=== PATIENT | female | born 1965 | race Caucasian/White ===

== ENCOUNTER 2021-10-16 10:59 | Inpatient (IN) | payer BC ==
[2021-10-16] MEDS ORDERED: Ondansetron PF 4 MG/2 ML Vial ONE (11:11)
[2021-10-16] MEDS ORDERED: Morphine 4 MG/ML VIAL ONE (11:11)
[2021-10-16 11:28] LABS: #Lymphocytes 0.3 thou/uL (1.20-3.40); #Monocytes 0.4 thou/uL (0.11-0.59); #Neutrophils 11.6 thou/uL (1.40-6.50); %Eosinophils 0.1 % (0.0-10.0); %Lymphocytes 2.6 % (21.0-51.0); %Monocytes 3.1 % (0.0-10.0); %Neutrophils 94.2 % (42.0-75.0); Mean Corpuscular HGB CONC 33.6 g/dL (32.0-36.0); Mean Corpuscular Volume 98.2 fL (78.0-98.0); Mean Platelet Volume 7.8 fL (7.4-10.4); Platelet Count 276 thou/uL (130-400); RBC Distribution Width 12.4 % (11.5-14.5); Red Blood Cell (RBC) Count 4.25 mill/uL (4.20-5.40); White Blood Cell (WBC) Count 12.3 thou/uL (4.8-10.8)
[2021-10-16 11:41] LABS: INR-International Normal Ratio 1.1; Prothrombin Time 14.5 sec (12.0-14.7)
[2021-10-16 11:42] LABS: PTT 96.9 sec (22.9-36.1)
[2021-10-16 11:54] LABS: ALT (SGPT) 15 U/L (8-55); AST (SGOT) 34 U/L (5-34); Albumin 2.9 g/dL (3.5-5.0); Alkaline Phosphatase 209 U/L (40-110); Anion Gap 16 mmol/L (10-20); BUN (Urea Nitrogen) 36 mg/dL (9.8-20.1); Bilirubin, Total 0.5 mg/dL (0.2-1.2); Calc. Creatinine Clearance 0 mL/min (70-130); Calcium 8.3 mg/dL (7.8-10.44); Carbon Dioxide 16 mmol/L (22-29); Chloride 108 mmol/L (98-107); Globulin 3.2 g/dL (2.4-3.5); Glucose 187 mg/dL (70-105); Magnesium 1.8 mg/dL (1.6-2.6); Potassium 4.2 mmol/L (3.5-5.1); Protein, Total 6.1 g/dL (6.0-8.3); Sodium 136 mmol/L (136-145)
[2021-10-16] MEDS ORDERED: Fentanyl 100 MCG/2 ML VIAL ONE (12:09)
[2021-10-16] MEDS ORDERED: Fentanyl 100 MCG/2 ML VIAL SLOW IVP SCH (12:15)
[2021-10-16] MEDS ORDERED: Heparin 25,000 units/D5W 500 ML IVPB SCH (12:15)
[2021-10-16] MEDS ORDERED: fentaNYL Citrate/PF 2,000 MCG in Sodium Chloride 0.9% 60 ML IV PRN (13:30)
[2021-10-16] MEDS ORDERED: diphenhydrAMINE 50 MG/ML VIAL IVP PRN (13:30)
[2021-10-16] MEDS ORDERED: Promethazine HCl 25 MG/ML VIAL IM PRN (13:30)
[2021-10-16] MEDS ORDERED: diphenhydrAMINE 50 MG/ML VIAL IM PRN (13:30)
[2021-10-16] MEDS ORDERED: diphenhydrAMINE 25 MG CAP PO PRN (13:30)
[2021-10-16] MEDS ORDERED: Zolpidem Tartrate 5 MG TAB PO PRN (13:30)
[2021-10-16] MEDS ORDERED: Communication Order-Pharmacy FS PRN (13:30)
[2021-10-16] MEDS ORDERED: Naloxone HCl 0.4 mg/ml Vial IV PRN (13:30)
[2021-10-16] MEDS: Sodium Bicarbonate 150 MEQ in Dextrose 5% in Water 1,000 ML IV SCH ×3 (14:54→23:47)
[2021-10-16 17:18] LABS: Bacteria/HPF 4+ HPF (None Seen); Bilirubin Negative (Negative); Blood, Urine Trace (Negative); Clarity Clear (Clear); Glucose, Urine (Dipstick) Normal (Negative); Ketone, Urine Negative (Negative); Leukocyte Negative Leu/uL (Negative); Nitrite Negative (Negative); Protein, Urine (Dipstick) Negative (Neg-Trace); RBC/HPF 0-3 HPF (0-3); Specific Gravity, Urine 1.015 (1.002-1.036); Squamous Epithelial 0-3 HPF (0-3); Urobilinogen Normal mg/dL (Less than 2); WBC/HPF 0-3 HPF (0-3)
[2021-10-16 17:22] LABS: Urine Culture Reflex Yes Yes
[2021-10-16 18:10] LABS: Anion Gap 17 mmol/L (10-20); BUN (Urea Nitrogen) 38 mg/dL (9.8-20.1); Calc. Creatinine Clearance 13 mL/min (70-130); Calcium 7.8 mg/dL (7.8-10.44); Carbon Dioxide 16 mmol/L (22-29); Chloride 107 mmol/L (98-107); Glucose 189 mg/dL (70-105); Potassium 3.9 mmol/L (3.5-5.1); Sodium 136 mmol/L (136-145)
[2021-10-16] MEDS: Heparin 10,000 UNITS/ 10 ML VIAL SLOW IVP SCH (19:03)
[2021-10-16] MEDS: Ondansetron PF 4 MG/2 ML Vial IVP PRN (20:02)
[2021-10-17 01:52] LABS: PTT 119.8 sec (22.9-36.1)
[2021-10-17 04:26] LABS: #Monocytes 1.5 thou/uL (0.11-0.59); #Neutrophils 16.4 thou/uL (1.40-6.50); %Basophils 0.2 % (0.0-1.0); %Eosinophils 0.2 % (0.0-10.0); %Lymphocytes 5.1 % (21.0-51.0); %Monocytes 7.8 % (0.0-10.0); %Neutrophils 86.8 % (42.0-75.0); Anion Gap 18 mmol/L (10-20); BUN (Urea Nitrogen) 36 mg/dL (9.8-20.1); Calc. Creatinine Clearance 13 mL/min (70-130); Calcium 7.6 mg/dL (7.8-10.44); Carbon Dioxide 20 mmol/L (22-29); Chloride 100 mmol/L (98-107); Glucose 126 mg/dL (70-105); Mean Corpuscular HGB CONC 31.5 g/dL (32.0-36.0); Mean Corpuscular Hemoglobin 32.4 pg (27.0-31.0); Platelet Count 244 thou/uL (130-400); Potassium 3.4 mmol/L (3.5-5.1); RBC Distribution Width 12.5 % (11.5-14.5); Sodium 135 mmol/L (136-145); White Blood Cell (WBC) Count 18.9 thou/uL (4.8-10.8)
[2021-10-17] MEDS: Metoclopramide HCl 10 MG/2 ML VIAL IVP PRN ×2 (06:11→21:12)
[2021-10-17] MEDS: Sodium Bicarbonate 150 MEQ in Dextrose 5% in Water 1,000 ML IV SCH ×2 (07:34→17:18)
[2021-10-17] MEDS ORDERED: Potassium Chloride 20 MEQ in Premix Bag 1 BAG IVPB SCH (08:30)
[2021-10-17] MEDS: Heparin 10,000 UNITS/ 10 ML VIAL SLOW IVP SCH ×2 (10:10→21:18)
[2021-10-17] MEDS: Ondansetron PF 4 MG/2 ML Vial IVP PRN (11:18)
[2021-10-17 11:45] LABS: SARS-CoV-2 NAA Rapid Test Not Detected (NotDetected)
[2021-10-17] MEDS ORDERED: Bupivacaine 0.25% 10 ML VIAL ONE (11:49)
[2021-10-17] MEDS ORDERED: Lidocaine 1% w/Epinephrine 1:100K 20 ML VIAL ONE (11:49)
[2021-10-17] MEDS ORDERED: fentaNYL Citrate/PF 100 MCG/2 ML SYRINGE ONE ×2 (11:50→14:09)
[2021-10-17] MEDS ORDERED: Metoclopramide HCl 10 MG/2 ML VIAL ONE (12:12)
[2021-10-17] MEDS ORDERED: Fentanyl 100 MCG/2 ML VIAL ONE ×2 (12:12→15:24)
[2021-10-17] MEDS: cefTRIAXone\\ROCEPHIN 1 GM in Sodium Chloride 0.9% 100 ML IVPB SCH (13:00)
[2021-10-17] MEDS ORDERED: HYDROmorphone 2 MG/ML VIAL ONE (13:15)
[2021-10-17] MEDS ORDERED: PROPOFOL 200 MG/20 ML VIAL ONE (13:21)
[2021-10-17] MEDS ORDERED: Glycopyrrolate 0.2 MG/ML 5 ML SYRINGE ONE (13:21)
[2021-10-17] MEDS ORDERED: Dexamethasone 20 MG/5 ML VIAL ONE (13:21)
[2021-10-17] MEDS ORDERED: Succinylcholine 200 MG/10 ml SYRINGE FS ONE (13:21)
[2021-10-17] MEDS ORDERED: Lidocaine 1% PF 5 ML VIAL ONE (13:21)
[2021-10-17] MEDS ORDERED: Rocuronium Bromide 10 MG/ML (10ML VIAL) ONE (13:21)
[2021-10-17] MEDS ORDERED: Levofloxacin 500 mg/D5W 100 ml Premix Bag ONE (13:36)
[2021-10-17] MEDS: metroNIDAZOLE 500 MG in Premix Bag 1 BAG IVPB SCH ×2 (14:00→21:11)
[2021-10-17] MEDS ORDERED: HYDROmorphone 2 MG/ML VIAL SLOW IVP PRN (15:08)
[2021-10-17] MEDS ORDERED: HYDROmorphone 0.5 MG/0.5 ML SYRINGE ONE (15:08)
[2021-10-17] MEDS ORDERED: Ondansetron HCl/PF 4 MG/2 ML Vial IVP PRN (15:08)
[2021-10-17] MEDS ORDERED: Promethazine HCl 25 MG/ML VIAL IM PRN ×2 (15:08→16:38)
[2021-10-17] MEDS ORDERED: PACU-Morphine 4MG/ML VIAL SLOW IVP PRN (15:08)
[2021-10-17] MEDS ORDERED: Morphine Sulfate 2 MG/ML SYRINGE SLOW IVP PRN (15:08)
[2021-10-17] MEDS ORDERED: Promethazine HCl 25 MG/ML VIAL IVPB PRN (15:08)
[2021-10-17] MEDS ORDERED: diphenhydrAMINE 50 MG/ML VIAL IM PRN (16:38)
[2021-10-17] MEDS ORDERED: Naloxone HCl 0.4 mg/ml Vial IV PRN (16:38)
[2021-10-17] MEDS ORDERED: Zolpidem Tartrate 5 MG TAB PO PRN (16:38)
[2021-10-17] MEDS ORDERED: Communication Order-Pharmacy FS SCH (16:45)
[2021-10-17] MEDS: HYDROmorphone 10 mg/100 ml CADD IVPB PRN (17:58)
[2021-10-17] MEDS: diphenhydrAMINE 50 MG/ML VIAL IVP PRN (21:12)
[2021-10-17] MEDS ORDERED: Heparin 25,000 units/D5W 500 ML IVPB SCH (22:00)
[2021-10-18] MEDS: Sodium Bicarbonate 150 MEQ in Dextrose 5% in Water 1,000 ML IV SCH (00:28)
[2021-10-18] MEDS: diphenhydrAMINE 50 MG/ML VIAL IVP PRN ×2 (02:30→21:48)
[2021-10-18 04:10] LABS: #Lymphocytes 0.9 thou/uL (1.20-3.40); #Monocytes 0.9 thou/uL (0.11-0.59); #Neutrophils 12.3 thou/uL (1.40-6.50); %Eosinophils 0.1 % (0.0-10.0); %Lymphocytes 6.7 % (21.0-51.0); %Monocytes 6.1 % (0.0-10.0); %Neutrophils 87.2 % (42.0-75.0); Hemoglobin 10.5 g/dL (12.0-16.0); Mean Corpuscular HGB CONC 32.5 g/dL (32.0-36.0); Mean Corpuscular Hemoglobin 32.3 pg (27.0-31.0); Mean Corpuscular Volume 99.3 fL (78.0-98.0); Mean Platelet Volume 7.9 fL (7.4-10.4); Platelet Count 220 thou/uL (130-400); Red Blood Cell (RBC) Count 3.24 mill/uL (4.20-5.40); White Blood Cell (WBC) Count 14.1 thou/uL (4.8-10.8)
[2021-10-18 04:35] LABS: ALT (SGPT) 12 U/L (8-55); AST (SGOT) 20 U/L (5-34); Albumin 2.2 g/dL (3.5-5.0); Alkaline Phosphatase 127 U/L (40-110); BUN (Urea Nitrogen) 34 mg/dL (9.8-20.1); Bilirubin, Total 0.4 mg/dL (0.2-1.2); CK (CPK) 211 U/L (29-168); Calc. Creatinine Clearance 15 mL/min (70-130); Calcium 6.6 mg/dL (7.8-10.44); Globulin 2.7 g/dL (2.4-3.5); Glucose 112 mg/dL (70-105); Lipase 52 U/L (8-78); Protein, Total 4.9 g/dL (6.0-8.3)
[2021-10-18 04:37] LABS: PTT 122.1 sec (22.9-36.1)
[2021-10-18 04:44] LABS: Anion Gap 21 mmol/L (10-20); Carbon Dioxide 34 mmol/L (22-29); Chloride 91 mmol/L (98-107); Potassium 3.5 mmol/L (3.5-5.1); Sodium 142 mmol/L (136-145)
[2021-10-18] MEDS: Levothyroxine Sodium 25 MCG TAB PO SCH ×2 (05:21→05:22)
[2021-10-18] MEDS: metroNIDAZOLE 500 MG in Premix Bag 1 BAG IVPB SCH ×3 (05:21→21:35)
[2021-10-18] MEDS: Pantoprazole 40 MG VIAL IVP SCH (09:23)
[2021-10-18] MEDS: Metoclopramide HCl 10 MG/2 ML VIAL IVP PRN ×2 (09:36→17:29)
[2021-10-18] MEDS: Sodium Chloride 0.9% 1,000 ML IV SCH (10:16)
[2021-10-18] MEDS: Heparin 10,000 UNITS/ 10 ML VIAL SLOW IVP SCH (11:30)
[2021-10-18] MEDS: cefTRIAXone\\ROCEPHIN 1 GM in Sodium Chloride 0.9% 100 ML IVPB SCH (12:18)
[2021-10-18] MEDS ORDERED: Calcium Carbonate 500 MG ChewTAB PO SCH (16:30)
[2021-10-18] MEDS: HYDROmorphone 10 mg/100 ml CADD IVPB PRN (17:51)
[2021-10-18] MEDS: Enoxaparin Sodium 100 MG/ML SYRINGE SC SCH (21:34)
[2021-10-18] MEDS: Calcium Carbonate 500 MG ChewTAB PO SCH (21:35)
[2021-10-18] MEDS: Ondansetron PF 4 MG/2 ML Vial IVP PRN (21:48)
[2021-10-19] MEDS: Sodium Chloride 0.9% 1,000 ML IV SCH ×2 (02:43→14:18)
[2021-10-19] MEDS: diphenhydrAMINE 50 MG/ML VIAL IVP PRN (04:36)
[2021-10-19 04:56] LABS: Hemoglobin 10.7 g/dL (12.0-16.0); Mean Corpuscular HGB CONC 32.6 g/dL (32.0-36.0); Mean Corpuscular Hemoglobin 32.6 pg (27.0-31.0); Mean Platelet Volume 7.9 fL (7.4-10.4); Platelet Count 299 thou/uL (130-400); RBC Distribution Width 12.2 % (11.5-14.5); Red Blood Cell (RBC) Count 3.28 mill/uL (4.20-5.40); White Blood Cell (WBC) Count 13.5 thou/uL (4.8-10.8)
[2021-10-19 05:11] LABS: Anion Gap 17 mmol/L (10-20); BUN (Urea Nitrogen) 33 mg/dL (9.8-20.1); Calc. Creatinine Clearance 15 mL/min (70-130); Carbon Dioxide 35 mmol/L (22-29); Chloride 91 mmol/L (98-107); Glucose 92 mg/dL (70-105); Potassium 3.2 mmol/L (3.5-5.1); Sodium 140 mmol/L (136-145)
[2021-10-19] MEDS: metroNIDAZOLE 500 MG in Premix Bag 1 BAG IVPB SCH ×3 (05:26→20:59)
[2021-10-19] MEDS: Levothyroxine Sodium 25 MCG TAB PO SCH (05:26)
[2021-10-19] MEDS: Pantoprazole 40 MG VIAL IVP SCH (09:11)
[2021-10-19] MEDS: Metoclopramide HCl 10 MG/2 ML VIAL IVP PRN ×2 (09:11→21:00)
[2021-10-19] MEDS: Calcium Carbonate 500 MG ChewTAB PO SCH ×3 (09:12→21:00)
[2021-10-19] MEDS: Potassium Chloride 20 MEQ TAB PO SCH ×2 (10:11→10:37)
[2021-10-19] MEDS ORDERED: Potassium Chloride 20 MEQ TAB PO SCH (10:45)
[2021-10-19] MEDS ORDERED: Potassium Bicarbonate/Cit Ac 20 MEQ TAB PO SCH (12:30)
[2021-10-19] MEDS: cefTRIAXone\\ROCEPHIN 1 GM in Sodium Chloride 0.9% 100 ML IVPB SCH (12:31)
[2021-10-19] MEDS: Enoxaparin Sodium 100 MG/ML SYRINGE SC SCH (21:07)
[2021-10-20] MEDS: Metoclopramide HCl 10 MG/2 ML VIAL IVP PRN ×2 (03:46→10:21)
[2021-10-20] MEDS: Sodium Chloride 0.9% 1,000 ML IV SCH (05:08)
[2021-10-20] MEDS: metroNIDAZOLE 500 MG in Premix Bag 1 BAG IVPB SCH ×3 (05:08→22:04)
[2021-10-20] MEDS: diphenhydrAMINE 25 MG CAP PO PRN (05:08)
[2021-10-20] MEDS: Levothyroxine Sodium 25 MCG TAB PO SCH (05:08)
[2021-10-20] MEDS: Calcium Carbonate 500 MG ChewTAB PO SCH ×3 (08:46→20:29)
[2021-10-20] MEDS: Pantoprazole 40 MG VIAL IVP SCH (08:47)
[2021-10-20 09:39] LABS: Anion Gap 11 mmol/L (10-20); BUN (Urea Nitrogen) 26 mg/dL (9.8-20.1); Calc. Creatinine Clearance 19 mL/min (70-130); Calcium 6.9 mg/dL (7.8-10.44); Carbon Dioxide 33 mmol/L (22-29); Chloride 94 mmol/L (98-107); Glucose 102 mg/dL (70-105); Potassium 3.4 mmol/L (3.5-5.1); Sodium 135 mmol/L (136-145)
[2021-10-20] MEDS ORDERED: Potassium Chloride 20 MEQ TAB PO SCH (10:30)
[2021-10-20] MEDS: HYDROcodone/Acetaminophen 7.5/325 mg Tablet PO PRN ×2 (12:21→20:28)
[2021-10-20] MEDS: cefTRIAXone\\ROCEPHIN 1 GM in Sodium Chloride 0.9% 100 ML IVPB SCH (12:22)
[2021-10-20] MEDS: Fentanyl 100 MCG/2 ML VIAL SLOW IVP PRN ×2 (15:54→22:02)
[2021-10-20] MEDS: Enoxaparin Sodium 100 MG/ML SYRINGE SC SCH (20:29)
[2021-10-21] MEDS: diphenhydrAMINE 50 MG/ML VIAL IVP PRN (00:19)
[2021-10-21] MEDS: Fentanyl 100 MCG/2 ML VIAL SLOW IVP PRN ×5 (00:26→21:06)
[2021-10-21] MEDS: HYDROcodone/Acetaminophen 7.5/325 mg Tablet PO PRN ×2 (03:42→10:48)
[2021-10-21] MEDS: Sodium Chloride 0.9% 1,000 ML IV SCH ×3 (03:44→21:08)
[2021-10-21] MEDS: metroNIDAZOLE 500 MG in Premix Bag 1 BAG IVPB SCH ×3 (05:21→21:05)
[2021-10-21] MEDS: Levothyroxine Sodium 25 MCG TAB PO SCH (05:21)
[2021-10-21 06:00] LABS: #Eosinphils 0.1 thou/uL (0.0-0.7); #Lymphocytes 0.8 thou/uL (1.20-3.40); #Monocytes 0.4 thou/uL (0.11-0.59); #Neutrophils 3.8 thou/uL (1.40-6.50); %Basophils 0.2 % (0.0-1.0); %Eosinophils 1.2 % (0.0-10.0); %Lymphocytes 15.5 % (21.0-51.0); %Monocytes 8.4 % (0.0-10.0); %Neutrophils 74.7 % (42.0-75.0); Hemoglobin 9.8 g/dL (12.0-16.0); Mean Corpuscular HGB CONC 32.9 g/dL (32.0-36.0); Mean Corpuscular Hemoglobin 33.1 pg (27.0-31.0); Platelet Count 285 thou/uL (130-400); Red Blood Cell (RBC) Count 2.95 mill/uL (4.20-5.40); White Blood Cell (WBC) Count 5.1 thou/uL (4.8-10.8)
[2021-10-21 07:32] LABS: Phosphorus 3.3 mg/dL (2.3-4.7)
[2021-10-21 07:37] LABS: Anion Gap 12 mmol/L (10-20); BUN (Urea Nitrogen) 22 mg/dL (9.8-20.1); Calc. Creatinine Clearance 23 mL/min (70-130); Calcium 7.2 mg/dL (7.8-10.44); Carbon Dioxide 33 mmol/L (22-29); Chloride 96 mmol/L (98-107); Glucose 88 mg/dL (70-105); Magnesium 1.1 mg/dL (1.6-2.6); Potassium 3.2 mmol/L (3.5-5.1); Sodium 138 mmol/L (136-145)
[2021-10-21] MEDS ORDERED: Magnesium 2 GM/50 ML(in water) 2 GM in Premix Bag 1 BAG IVPB SCH (08:45)
[2021-10-21] MEDS ORDERED: Potassium Chloride 20 MEQ TAB PO SCH (09:00)
[2021-10-21] MEDS: Pantoprazole 40 MG VIAL IVP SCH (09:05)
[2021-10-21] MEDS: Calcium Carbonate 500 MG ChewTAB PO SCH ×3 (09:06→21:05)
[2021-10-21] MEDS: cefTRIAXone\\ROCEPHIN 1 GM in Sodium Chloride 0.9% 100 ML IVPB SCH (13:45)
[2021-10-21] MEDS: Metoclopramide HCl 10 MG/2 ML VIAL IVP PRN (17:03)
[2021-10-21] MEDS: Enoxaparin Sodium 100 MG/ML SYRINGE SC SCH (21:05)
[2021-10-22] MEDS: HYDROcodone/Acetaminophen 7.5/325 mg Tablet PO PRN ×5 (00:19→22:43)
[2021-10-22] MEDS: diphenhydrAMINE 25 MG CAP PO PRN ×2 (00:19→22:44)
[2021-10-22] MEDS: metroNIDAZOLE 500 MG in Premix Bag 1 BAG IVPB SCH ×3 (05:40→21:20)
[2021-10-22] MEDS: Levothyroxine Sodium 25 MCG TAB PO SCH (05:40)
[2021-10-22 06:31] LABS: Phosphorus 2.6 mg/dL (2.3-4.7)
[2021-10-22] MEDS: Calcium Carbonate 500 MG ChewTAB PO SCH ×3 (08:07→21:20)
[2021-10-22] MEDS: Pantoprazole 40 MG VIAL IVP SCH (08:07)
[2021-10-22 09:03] LABS: Anion Gap 13 mmol/L (10-20); BUN (Urea Nitrogen) 17 mg/dL (9.8-20.1); Calc. Creatinine Clearance 29 mL/min (70-130); Calcium 7.1 mg/dL (7.8-10.44); Carbon Dioxide 29 mmol/L (22-29); Chloride 100 mmol/L (98-107); Glucose 96 mg/dL (70-105); Magnesium 1.6 mg/dL (1.6-2.6); Potassium 3.4 mmol/L (3.5-5.1); Sodium 139 mmol/L (136-145)
[2021-10-22] MEDS ORDERED: Potassium Chloride 20 MEQ TAB PO SCH (10:45)
[2021-10-22] MEDS: cefTRIAXone\\ROCEPHIN 1 GM in Sodium Chloride 0.9% 100 ML IVPB SCH (10:49)
[2021-10-22] MEDS: Sodium Chloride 0.9% 1,000 ML IV SCH (11:55)
[2021-10-22] MEDS: Ondansetron PF 4 MG/2 ML Vial IVP PRN (15:40)
[2021-10-22] MEDS: Enoxaparin Sodium 100 MG/ML SYRINGE SC SCH (21:20)
[2021-10-23] MEDS: HYDROcodone/Acetaminophen 7.5/325 mg Tablet PO PRN ×5 (05:29→22:44)
[2021-10-23] MEDS: metroNIDAZOLE 500 MG in Premix Bag 1 BAG IVPB SCH ×3 (05:29→21:07)
[2021-10-23] MEDS: Levothyroxine Sodium 25 MCG TAB PO SCH (05:29)
[2021-10-23 05:59] LABS: #Eosinphils 0.1 thou/uL (0.0-0.7); #Lymphocytes 1.3 thou/uL (1.20-3.40); #Monocytes 0.5 thou/uL (0.11-0.59); #Neutrophils 5.6 thou/uL (1.40-6.50); %Basophils 0.2 % (0.0-1.0); %Eosinophils 1.2 % (0.0-10.0); %Lymphocytes 16.8 % (21.0-51.0); %Monocytes 7.3 % (0.0-10.0); %Neutrophils 74.5 % (42.0-75.0); Hemoglobin 10.6 g/dL (12.0-16.0); Mean Corpuscular HGB CONC 32.7 g/dL (32.0-36.0); Mean Corpuscular Hemoglobin 32.5 pg (27.0-31.0); Mean Corpuscular Volume 99.4 fL (78.0-98.0); Mean Platelet Volume 7.2 fL (7.4-10.4); Platelet Count 383 thou/uL (130-400); RBC Distribution Width 12.2 % (11.5-14.5); Red Blood Cell (RBC) Count 3.26 mill/uL (4.20-5.40); White Blood Cell (WBC) Count 7.4 thou/uL (4.8-10.8)
[2021-10-23 06:22] LABS: Anion Gap 12 mmol/L (10-20); BUN (Urea Nitrogen) 16 mg/dL (9.8-20.1); Calc. Creatinine Clearance 34 mL/min (70-130); Carbon Dioxide 30 mmol/L (22-29); Chloride 99 mmol/L (98-107); Glucose 86 mg/dL (70-105); Potassium 3.8 mmol/L (3.5-5.1); Sodium 137 mmol/L (136-145)
[2021-10-23] MEDS: Pantoprazole 40 MG VIAL IVP SCH (08:28)
[2021-10-23] MEDS: Calcium Carbonate 500 MG ChewTAB PO SCH ×3 (08:28→21:06)
[2021-10-23] MEDS ORDERED: Apixaban 5 MG TAB PO SCH (09:21)
[2021-10-23] MEDS: Sodium Chloride 0.9% 1,000 ML IV SCH (09:59)
[2021-10-23] MEDS: cefTRIAXone\\ROCEPHIN 1 GM in Sodium Chloride 0.9% 100 ML IVPB SCH (12:19)
[2021-10-23] MEDS ORDERED: Enoxaparin Sodium 80 MG/0.8 ML SYRINGE SC SCH (21:00)
[2021-10-23] MEDS: Apixaban 5 MG TAB PO SCH (21:06)
[2021-10-24] MEDS: HYDROcodone/Acetaminophen 7.5/325 mg Tablet PO PRN ×3 (05:20→15:27)
[2021-10-24] MEDS: metroNIDAZOLE 500 MG in Premix Bag 1 BAG IVPB SCH (05:21)
[2021-10-24] MEDS: Levothyroxine Sodium 25 MCG TAB PO SCH (05:21)
[2021-10-24 05:37] VITALS: BMI 28.6
[2021-10-24 08:19] LABS: #Eosinphils 0.1 thou/uL (0.0-0.7); #Lymphocytes 1.1 thou/uL (1.20-3.40); #Monocytes 0.7 thou/uL (0.11-0.59); #Neutrophils 7.3 thou/uL (1.40-6.50); %Basophils 0.2 % (0.0-1.0); %Eosinophils 1.3 % (0.0-10.0); %Lymphocytes 11.6 % (21.0-51.0); %Monocytes 7.5 % (0.0-10.0); %Neutrophils 79.4 % (42.0-75.0); Hemoglobin 10.7 g/dL (12.0-16.0); Mean Corpuscular HGB CONC 32.3 g/dL (32.0-36.0); Mean Corpuscular Hemoglobin 32.5 pg (27.0-31.0); Mean Platelet Volume 7.6 fL (7.4-10.4); Platelet Count 408 thou/uL (130-400); RBC Distribution Width 12.3 % (11.5-14.5); Red Blood Cell (RBC) Count 3.29 mill/uL (4.20-5.40); White Blood Cell (WBC) Count 9.2 thou/uL (4.8-10.8)
[2021-10-24] MEDS: Pantoprazole 40 MG VIAL IVP SCH (08:26)
[2021-10-24] MEDS: Apixaban 5 MG TAB PO SCH (08:27)
[2021-10-24] MEDS: Calcium Carbonate 500 MG ChewTAB PO SCH ×2 (08:27→15:27)
[2021-10-24 08:41] LABS: Anion Gap 14 mmol/L (10-20); BUN (Urea Nitrogen) 18 mg/dL (9.8-20.1); Calc. Creatinine Clearance 39 mL/min (70-130); Calcium 8.5 mg/dL (7.8-10.44); Carbon Dioxide 27 mmol/L (22-29); Chloride 99 mmol/L (98-107); Glucose 95 mg/dL (70-105); Potassium 4.2 mmol/L (3.5-5.1); Sodium 136 mmol/L (136-145)
[2021-10-24 12:14] VITALS: BP 159/82; TEMP 98.4
[2021-10-24 17:02] LABS: SARS-CoV-2 PCR by NAA Not Detected (NotDetected)
== END 2021-10-24 16:30 | disposition home or self-care (01) | DRG 329 ==
LOC: ERS 10:59 → IMCU/EMU 11:39 → SURG B 10-19 18:21
PROVIDERS: ADMIT Family Medicine; ATTEND Internal Medicine
PROC: 0DB80ZZ Excision of Small Intestine, Open Approach (ICD-10-PCS; principal; 2021-10-17)
PROC: 02H633Z Insertion of Infusion Device into Right Atrium, Percutaneous Approach (ICD-10-PCS; 2021-10-17)
DX: K55.019 Acute (reversible) ischemia of small intestine, extent unspecified (principal); J96.01 Acute respiratory failure with hypoxia; N17.0 Acute kidney failure with tubular necrosis; E87.1 Hypo-osmolality and hyponatremia; N18.5 Chronic kidney disease, stage 5; E87.2 Acidosis; E87.3 Alkalosis; J98.11 Atelectasis; K55.029 Acute infarction of small intestine, extent unspecified; E87.6 Hypokalemia; E83.42 Hypomagnesemia; D72.829 Elevated white blood cell count, unspecified; E83.52 Hypercalcemia; E87.70 Fluid overload, unspecified; E87.5 Hyperkalemia; E86.0 Dehydration; R73.9 Hyperglycemia, unspecified; R94.31 Abnormal electrocardiogram [ECG] [EKG]; T50.995A Adverse effect of other drugs, medicaments and biological substances, initial encounter; I12.9 Hypertensive chronic kidney disease with stage 1 through stage 4 chronic kidney disease, or unspecified chronic kidney disease; E03.9 Hypothyroidism, unspecified; K21.9 Gastro-esophageal reflux disease without esophagitis; Z96.659 Presence of unspecified artificial knee joint; M19.90 Unspecified osteoarthritis, unspecified site; E83.51 Hypocalcemia; Z20.822 Contact with and (suspected) exposure to COVID-19; Z79.899 Other long term (current) drug therapy; Z79.891 Long term (current) use of opiate analgesic; Z79.01 Long term (current) use of anticoagulants; Z79.890 Hormone replacement therapy; Z88.0 Allergy status to penicillin; Z88.1 Allergy status to other antibiotic agents; Z90.49 Acquired absence of other specified parts of digestive tract; Z98.890 Other specified postprocedural states
CPT/HCPCS: 36415; 36416; 71045; 76770; 80048; 80053; 81001; 82550; 83605; 83690; 83735; 83880; 84100; 84443; 85025; 85027; 85520; 85610; 85730; 87040; 87086; 88307; 93005; 96361; 96365; 96366; 96374; 96375; C1751; C9113; J0696; J1100; J1170; J1200; J1644; J1650; J1956; J2270; J2405; J2550; J2704; J2765; J3010; J3475; J3480; J3490; J7050; J7070; S0020; U0002; U0003; U0005